=== PATIENT | female | born 1980 | race Caucasian/White ===

== ENCOUNTER 2018-09-07 09:52 | Emergency (ER) | payer OTHER ==
[~2018-09-07] VITALS: Ht 170.2 cm; Wt 74.8 kg
[~2018-09-07 09:52] MED LIST: BACTRIM; BACTRIM DS TAB1 EACH PO; BUSPIRONE HCL10 MG; CLEOCIN HCL300 MG PO; IBUPROFEN 800800 M1 PO; KEFLEX500 MG PO; MULTI VITAMIN1 EACH PO; NAPROSYN500 MG PO; ULTRAM 50MG TAB50 MG
[2018-09-07 10:02] VITALS: BP 115/78
[2018-09-07] MEDS ORDERED: DOXY 100100 MG IV (10:14)
[2018-09-07] MEDS ORDERED: DOXYCYCLINE MO100 M1 PO (10:19)
== END 2018-09-07 10:25 | disposition home or self-care (01) ==
LOC: M.ERS 09:52
DX: L02.31 Cutaneous abscess of buttock (principal); F41.9 Anxiety disorder, unspecified; F17.210 Nicotine dependence, cigarettes, uncomplicated; Z98.890 Other specified postprocedural states